=== PATIENT | female | born 1955 | race Caucasian/White ===

== ENCOUNTER 2024-02-16 13:10 | Emergency (ER) | payer MEDICARE, MEDICAID, SELFPAY ==
--- NOTE | 2024-02-16 13:30 | EDNOTE_ITS ---
ED Skin Abcess FB-RME/HPI General Chief complaint: Skin/Abscess/Foreign Body Stated complaint: I HAVE MYIASIS - LESIONS TO ARMS, LEGS, AND NOSE Time Seen by Provider: 02/16/24 13:32 Arrival date/time: 02/16/24 13:10 68-year-old female with history of methamphetamine abuse presents to the emergency department today reports she has multiple sores Limitations: no limitations Related Data Home Medications ?Medication ?Instructions ?Recorded ?Confirmed atenolol 100 mg tablet (Tenormin) 100 mg PO QDAY HBP ##0 02/15/14 03/13/21 sertraline 100 mg tablet (Zoloft) 100 mg PO BID Depression #0 tabs 07/20/15 03/13/21 Previous Rx's ?Medication ?Instructions ?Recorded sulfamethoxazole 800 1 tab PO BID #20 tabs 03/13/21 mg-trimethoprim 160 mg tablet (Bactrim DS) lidocaine 5 % topical patch 2 patch topical QDAY PRN pain #30 10/19/23 (Lidoderm) ea oxycodone-acetaminophen 5 mg-325 2 tab PO TID PRN pain #20 tabs 10/19/23 mg tablet (Percocet) clindamycin HCl 300 mg capsule 300 mg PO TID 7 days #21 caps 02/16/24 mupirocin 2 % topical ointment 1 applic topical TID 10 days #22 02/16/24 grams Allergies Allergy/AdvReac Type Severity Reaction Status Date / Time Iodinated Contrast Media Allergy Severe Agitated Verified 11/10/23 13:11 [Iodinated Contrast- Oral and IV Dye] ketorolac Allergy Intermediate ITCHING Verified 11/10/23 13:11 tramadol AdvReac Severe SEIZURES Verified 11/10/23 13:11 PER PT codeine AdvReac Intermediate VOMITING Verified 11/10/23 13:11 hydrocodone AdvReac Intermediate VOMITING Verified 11/10/23 13:11 Review of Systems Review of Systems Systems Reviewed: All systems reviewed, normal except as documented Constitutional Constitutional: Reports system reviewed and no additional complaints, except as documented, Denies fever(s) and Denies headache(s) Eyes Eyes: Reports system reviewed and no additional complaints, except as documented and Denies blurry vision ENT Ears, Nose, Mouth, and Throat: Reports system reviewed and no additional complaints, except as documented, Denies headache(s), Denies nasal congestion and Denies nasal discharge Cardiovascular Cardiovascular: Reports system reviewed and no additional complaints, except as documented, Denies chest pain and Denies dyspnea Respiratory Respiratory: Reports system reviewed and no additional complaints, except as documented, Denies chest congestion, Denies cough and Denies dyspnea Gastrointestinal Gastrointestinal: Reports system reviewed and no additional complaints, except as documented and Denies abdominal pain Integumentary/Breasts Skin/Breast: Reports system reviewed and no additional complaints, except as documented, Denies rash and Reports wounds (Skin sores) Neurologic Neurologic: Reports system reviewed and no additional complaints, except as documented, Reports as per HPI and Denies headache(s) Past Medical History Past Medical History CARDIAC: Positive Hypertension; Negative Congestive Heart Failure RESPIRATORY: Negative Chronic Obstructive Pulmonary Disease (COPD) GASTROINTESTINAL: Positive Hepatitis GENITOURINARY: Positive Genitourinary Disorders and Renal Disease ENDOCRINE: Negative Diabetes Mellitus Type 1 or Diabetes Mellitus Type 2 PSYCHO/SOCIAL: Positive Depression and Anxiety OTHER HISTORY: Positive Autoimmune Disease Social History SMOKING STATUS: Never smoker ED Exam General Limitations: Present no limitations General appearance: Present alert and in no apparent distress Head Head exam: Present atraumatic Eye Eye exam: Present normal appearance, PERRL and EOMI ENT ENT exam: Present normal exam, normal oropharynx and mucous membranes moist Neck Neck exam: Present normal inspection, full ROM and trachea midline Chest Chest inspection: Present normal inspection and symmetric chest wall rise Respiratory Respiratory exam: Present normal lung sounds bilaterally Cardiovascular Cardiovascular exam: Present regular rate, normal rhythm and normal heart sounds Abdominal Exam Abdominal exam: Present soft and normal bowel sounds Extremities Exam Extremities exam: Present normal inspection, full ROM and normal capillary refill; Absent tenderness, pedal edema, joint swelling or calf tenderness Back Exam Back exam: Present normal inspection and full ROM Neurological Exam Neurological exam: Present alert, oriented X3 and CN II-XII intact Psychiatric Psychiatric exam: Present normal affect and normal mood Skin Skin exam: Present warm, dry and other (Multiple skin sores) Course Quality Measures none Vital Signs Vital signs: Vital Signs Temperature 98 F 02/16/24 13:31 Pulse Rate 77 02/16/24 13:31 Respiratory Rate 18 02/16/24 13:31 Blood Pressure 168/69 H 02/16/24 13:31 Pulse Oximetry (%) 98 02/16/24 13:31 Oxygen Delivery Method Room Air 02/16/24 13:31 O2 saturation 98% room air within normal limits Skin / Abscess / Foreign Body MDM Narrative MDM Narrative:: 68-year-old female with history of methamphetamine abuse presents to the emergency department today reports she has multiple sores On exam patient appears well patient does not appear ill or toxic Patient has multiple sores on her body in different stages of healing and multiple completely healed sores with scarring Symptoms consistent with methamphetamine abuse and picking at her skin Patient discharged with antibiotics to prevent secondary infection At this time no evidence of abscess or cellulitis Patient discharged home in no distress to follow-up with primary care doctor in the next 24 to 48 hours and for any worsening symptoms to return to the ER immediately Patient data External records reviewed:: [facility] previous records Clinical information provided by:: patient Social determinants that could affect healthcare access:: substance use Patient has the following chronic illnesses:: See history How is presenting disease/condition affected by chronic disease/condition?: caused by Evaluation data The following diagnostics were reviewed and interpreted by me:: other (specify) (N/A) Lab and/or radiology exams considered but not ordered:: Consider not ordered Interpretation Summary: N/A Medications / Prescriptions Medications or Prescriptions considered but not ordered:: Given Medication administrations:: Given Consultations Consultation(s) initiated? (list below): No Diagnosis Skin/Abscess Differential Diagnosis: abscess of skin or subcutaneous tissue, cellulitis and other (Skin sores) Most likely diagnosis given after review of the tests above:: Skin sores Admission Indicated Admission indicated?: not indicated Admission Request Was there a request for admission?: No Disposition Plan Disposition Plan: Discharge Discharge Attestation Discharge Attestation: The patient and all family members were given an opportunity to ask questions and understood the discharge instructions. Discharge instructions specifically effects, indications for sooner follow up or return to the emergency department, and the expected course of current diagnosis. Patient condition: Stable Discharge Plan Plan Patient Disposition: HOME (Self Care) Disposition Comment: stable Prescriptions/Referrals Prescriptions/Med Rec: New clindamycin HCl 300 mg capsule 300 mg PO TID 7 Days Qty: 21 0RF mupirocin 2 % ointment 1 applic topical TID 10 Days Qty: 22 0RF No Action atenolol [Tenormin] 100 MG tablet 100 mg PO QDAY Qty: 0 sertraline [Zoloft] 100 MG tablet 100 mg PO BID Qty: 0 sulfamethoxazole-trimethoprim [Bactrim DS] 800-160 mg tablet 1 tab PO BID Qty: 20 0RF oxycodone-acetaminophen [Percocet] 5-325 mg tablet 2 tab PO TID MDD 6 PRN (Reason: pain) Qty: 20 0RF lidocaine [Lidoderm] 5 % adhesive patch,medicated 2 patch topical QDAY PRN (Reason: pain) Qty: 30 0RF Rx Instructions: leave on most painful area for up to 12 hrs Problem List Clinical Impression: Skin sore Patient/Caregiver Discharge Instructions Additional Instructions: Please follow up with your primary care doctor in the next 24-48hrs for any worsening symptoms return here immediately Print Language: Mongolian Stand Alone Forms: Harini Award Info., Patient Portal Info Letter [employer] Supervising Physician NENA/KAROLINE Supervising Physician: dr hart
[2024-02-16 13:31] VITALS: BP 168/69; PULSE 77; RESP 18; TEMP 36.6; O2SAT 98; BMI 22.7
--- NOTE | 2024-02-16 13:48 | PC.CC ---
ASW was consulted regarding ride for patient. ASW set up transportation via [employer] for the patient.
== END 2024-02-16 13:37 | disposition home or self-care (01) ==
PROVIDERS: Emergency Provider Emergency Medicine; PCP Nurse Practitioner
DX: L98.9 Disorder of the skin and subcutaneous tissue, unspecified (principal)
CPT/HCPCS: 99281

== ENCOUNTER 2024-03-23 22:54 | Emergency (ER) | payer MEDICARE, MEDICAID, SELFPAY ==
[2024-03-23 23:30] VITALS: BP 177/84; PULSE 79; RESP 20; TEMP 36.5; O2SAT 97
--- NOTE | 2024-03-24 00:12 | PC.NURSE ---
Pt was placed in RME 2 for vitals and to speak to a provider. After speaking to provider and getting vitals taken pt was no longer in RME 2 and could not be found. Pt is believed to have eloped.
--- NOTE | 2024-03-24 00:14 | PC.NURSE ---
Pt was discharged by provider.
[2024-03-24 00:17] VITALS: RESP 18
--- NOTE | 2024-03-24 05:32 | PD.EDSKIN ---
ED Skin Abcess FB-RME/HPI General Chief complaint: Skin/Abscess/Foreign Body Stated complaint: SKIN PROBLEM Time Seen by Provider: 03/24/24 00:13 Arrival date/time: 03/23/24 22:54 68F with history of meth use presents to ED with chronic wounds on skin thinking there's worms in her skin. Patient was recently this here and given ABX w/o relief. Patient wants ivermectin. Limitations: no limitations Related Data Home Medications ?Medication ?Instructions ?Recorded ?Confirmed atenolol 100 mg tablet (Tenormin) 100 mg PO QDAY HBP ##0 02/15/14 03/13/21 sertraline 100 mg tablet (Zoloft) 100 mg PO BID Depression #0 tabs 07/20/15 03/13/21 Previous Rx's ?Medication ?Instructions ?Recorded sulfamethoxazole 800 1 tab PO BID #20 tabs 03/13/21 mg-trimethoprim 160 mg tablet (Bactrim DS) lidocaine 5 % topical patch 2 patch topical QDAY PRN pain #30 10/19/23 (Lidoderm) ea oxycodone-acetaminophen 5 mg-325 2 tab PO TID PRN pain #20 tabs 10/19/23 mg tablet (Percocet) Allergies Allergy/AdvReac Type Severity Reaction Status Date / Time Iodinated Contrast Media Allergy Severe Agitated Verified 03/23/24 22:58 [Iodinated Contrast- Oral and IV Dye] ketorolac Allergy Intermediate ITCHING Verified 03/23/24 22:58 tramadol AdvReac Severe SEIZURES Verified 03/23/24 22:58 PER PT codeine AdvReac Intermediate VOMITING Verified 03/23/24 22:58 hydrocodone AdvReac Intermediate VOMITING Verified 03/23/24 22:58 Review of Systems Review of Systems Systems Reviewed: All systems reviewed, normal except as documented Constitutional Constitutional: Reports system reviewed and no additional complaints, except as documented, Denies fever(s) and Denies headache(s) ENT Ears, Nose, Mouth, and Throat: Denies disequilibrium and Denies headache(s) Cardiovascular Cardiovascular: Reports system reviewed and no additional complaints, except as documented, Denies chest pain and Denies dyspnea Respiratory Respiratory: Reports system reviewed and no additional complaints, except as documented, Denies cough and Denies dyspnea Gastrointestinal Gastrointestinal: Reports system reviewed and no additional complaints, except as documented, Denies abdominal pain, Denies nausea and Denies vomiting Integumentary/Breasts Skin/Breast: Reports as per HPI, Reports lesions and Reports wounds Neurologic Neurologic: Reports system reviewed and no additional complaints, except as documented, Denies confusion, Denies disequilibrium and Denies headache(s) Psychiatric Psychiatric: Denies confusion Past Medical History Past Medical History CARDIAC: Positive Hypertension; Negative Congestive Heart Failure RESPIRATORY: Negative Chronic Obstructive Pulmonary Disease (COPD) GASTROINTESTINAL: Positive Hepatitis GENITOURINARY: Positive Genitourinary Disorders and Renal Disease ENDOCRINE: Negative Diabetes Mellitus Type 1 or Diabetes Mellitus Type 2 PSYCHO/SOCIAL: Positive Depression and Anxiety OTHER HISTORY: Positive Autoimmune Disease Social History SMOKING STATUS: Current every day smoker ED Exam General Limitations: Present no limitations General appearance: Present alert and in no apparent distress Head Head exam: Present atraumatic Eye Eye exam: Present normal appearance, PERRL and EOMI ENT ENT exam: Present normal exam, normal oropharynx and mucous membranes moist Neck Neck exam: Present normal inspection, full ROM and trachea midline Chest Chest inspection: Present normal inspection and symmetric chest wall rise Respiratory Respiratory exam: Present normal lung sounds bilaterally Cardiovascular Cardiovascular exam: Present regular rate, normal rhythm and normal heart sounds Abdominal Exam Abdominal exam: Present soft and normal bowel sounds Extremities Exam Extremities exam: Present full ROM Expanded Upper Extremity Exam Arm exam: Present full ROM and other (R lesions) Back Exam Back exam: Present normal inspection and full ROM Neurological Exam Neurological exam: Present alert, oriented X3 and CN II-XII intact Psychiatric Psychiatric exam: Present normal affect and normal mood Skin Skin exam: Present warm, dry, intact and normal color Course Quality Measures none Vital Signs Vital signs: Vital Signs Temperature 97.7 F 03/23/24 23:30 Pulse Rate 79 03/23/24 23:30 Respiratory Rate 20 03/23/24 23:30 Blood Pressure 177/84 H 03/23/24 23:30 Pulse Oximetry (%) 97 03/23/24 23:30 Oxygen Delivery Method Room Air 03/23/24 23:30 O2 at 97% on RA and WNLs Skin / Abscess / Foreign Body MDM Narrative MDM Narrative:: 68F with history of meth use presents to ED with chronic wounds on skin thinking there's worms in her skin. Patient was recently this here and given ABX w/o relief. Patient wants ivermectin. Physical exam reveals several open wounds on R arm with no obvious redness or swelling around them. Patient is afebrile, calm, and alert. 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 Patient data External records reviewed:: [facility] previous records Clinical information provided by:: patient Social determinants that could affect healthcare access:: substance use Patient has the following chronic illnesses:: drug use How is presenting disease/condition affected by chronic disease/condition?: exacerbated by Evaluation data The following diagnostics were reviewed and interpreted by me:: other (specify) (none) Lab and/or radiology exams considered but not ordered:: not ordered Interpretation Summary: n/a Medications / Prescriptions Medications or Prescriptions considered but not ordered:: not ordered Medication administrations:: n/a Consultations Consultation(s) initiated? (list below): No Diagnosis Skin/Abscess Differential Diagnosis: abscess of skin or subcutaneous tissue, viral exanthem, dermatophytosis, urticaria, herpes zoster, allergic reaction to drug, cellulitis, eczema, insect bites, impetigo, contact dermatitis and other (chronic wound and delusions of parasitosis) Most likely diagnosis given after review of the tests above:: chronic wound and delusions of parasitosis Admission Indicated Admission indicated?: not indicated Admission Request Was there a request for admission?: No Disposition Plan Disposition Plan: Discharge Discharge Attestation Discharge Attestation: The patient and all family members were given an opportunity to ask questions and understood the discharge instructions. Discharge instructions specifically effects, indications for sooner follow up or return to the emergency department, and the expected course of current diagnosis. Patient condition: Stable Discharge Plan Plan Patient Disposition: HOME (Self Care) Disposition Comment: Stable Prescriptions/Referrals Prescriptions/Med Rec: No Action atenolol [Tenormin] 100 MG tablet 100 mg PO QDAY Qty: 0 sertraline [Zoloft] 100 MG tablet 100 mg PO BID Qty: 0 sulfamethoxazole-trimethoprim [Bactrim DS] 800-160 mg tablet 1 tab PO BID Qty: 20 0RF oxycodone-acetaminophen [Percocet] 5-325 mg tablet 2 tab PO TID MDD 6 PRN (Reason: pain) Qty: 20 0RF lidocaine [Lidoderm] 5 % adhesive patch,medicated 2 patch topical QDAY PRN (Reason: pain) Qty: 30 0RF Rx Instructions: leave on most painful area for up to 12 hrs Referrals: Jesusita Alvarez FNP [Primary Care Provider] - In 1 week Problem List Clinical Impression: Delusions of parasitosis, Chronic wound Patient/Caregiver Discharge Instructions Additional Instructions: Please follow-up with PCP within 24-48 hours and return immediately if symptoms worsen. Follow-up with dermatology. Can also call [facility]: . Print Language: Persian Stand Alone Forms: Patient Portal Info Letter NENA/KAROLINE Supervising Physician TUNG Supervising Physician: Dr. Goodson
== END 2024-03-24 00:31 | disposition home or self-care (01) ==
PROVIDERS: Emergency Provider Emergency Medicine; PCP Nurse Practitioner
DX: F22 Delusional disorders (principal); S41.101D Unspecified open wound of right upper arm, subsequent encounter; X58.XXXD Exposure to other specified factors, subsequent encounter
CPT/HCPCS: 99281

== ENCOUNTER 2024-05-08 15:08 | Emergency (ER) | payer MEDICARE, MEDICAID, SELFPAY ==
[2024-05-08 15:08] VITALS: BMI 23.5
[2024-05-08 15:17] VITALS: BP 175/77; PULSE 68; RESP 20; TEMP 36.7; O2SAT 100
--- NOTE | 2024-05-08 15:17 | PD.EDSKIN ---
ED Skin Abcess FB-RME/HPI General Chief complaint: Skin/Abscess/Foreign Body Stated complaint: SORES TO WHOLE BODY x 7 DAYS Time Seen by Provider: 05/08/24 15:11 Arrival date/time: 05/08/24 15:08 68-year-old female history of methamphetamine abuse presents to the emergency department today complains of skin sores to her body patient reports symptoms ongoing for more than a week patient's had multiple visits for the same Limitations: no limitations Related Data Home Medications ?Medication ?Instructions ?Recorded ?Confirmed atenolol 100 mg tablet (Tenormin) 100 mg PO QDAY HBP ##0 02/15/14 03/13/21 sertraline 100 mg tablet (Zoloft) 100 mg PO BID Depression #0 tabs 07/20/15 03/13/21 Previous Rx's ?Medication ?Instructions ?Recorded sulfamethoxazole 800 1 tab PO BID #20 tabs 03/13/21 mg-trimethoprim 160 mg tablet (Bactrim DS) lidocaine 5 % topical patch 2 patch topical QDAY PRN pain #30 10/19/23 (Lidoderm) ea oxycodone-acetaminophen 5 mg-325 2 tab PO TID PRN pain #20 tabs 24 mg tablet (Percocet) mupirocin 2 % topical ointment 1 applic topical TID 10 days #22 05/08/24 grams Allergies Allergy/AdvReac Type Severity Reaction Status Date / Time Iodinated Contrast Media Allergy Severe Agitated Verified 05/08/24 15:10 (Iodinated Contrast- Oral and IV Dye) ketorolac Allergy Severe ITCHING Verified 05/08/24 15:10 codeine AdvReac Severe VOMITING Verified 05/08/24 15:10 hydrocodone AdvReac Severe VOMITING Verified 05/08/24 15:10 tramadol AdvReac Severe SEIZURES Verified 05/08/24 15:10 PER PT Review of Systems Review of Systems Systems Reviewed: All systems reviewed, normal except as documented Constitutional Constitutional: Reports system reviewed and no additional complaints, except as documented, Denies fever(s) and Denies headache(s) Eyes Eyes: Reports system reviewed and no additional complaints, except as documented and Denies blurry vision ENT Ears, Nose, Mouth, and Throat: Reports system reviewed and no additional complaints, except as documented, Denies headache(s), Denies nasal congestion and Denies nasal discharge Cardiovascular Cardiovascular: Reports system reviewed and no additional complaints, except as documented, Denies chest pain and Denies dyspnea Respiratory Respiratory: Reports system reviewed and no additional complaints, except as documented, Denies chest congestion, Denies cough and Denies dyspnea Gastrointestinal Gastrointestinal: Reports system reviewed and no additional complaints, except as documented and Denies abdominal pain Integumentary/Breasts Skin/Breast: Reports system reviewed and no additional complaints, except as documented, Reports lesions and Denies rash Neurologic Neurologic: Reports system reviewed and no additional complaints, except as documented, Reports as per HPI and Denies headache(s) Past Medical History Past Medical History CARDIAC: Positive Hypertension; Negative Congestive Heart Failure RESPIRATORY: Negative Chronic Obstructive Pulmonary Disease (COPD) GASTROINTESTINAL: Positive Hepatitis GENITOURINARY: Positive Genitourinary Disorders and Renal Disease ENDOCRINE: Negative Diabetes Mellitus Type 1 or Diabetes Mellitus Type 2 PSYCHO/SOCIAL: Positive Depression and Anxiety OTHER HISTORY: Positive Autoimmune Disease Social History SMOKING STATUS: Heavy (> 1 pack/day) ED Exam General Limitations: Present no limitations General appearance: Present alert and in no apparent distress Head Head exam: Present atraumatic, normocephalic and normal inspection Eye Eye exam: Present normal appearance, PERRL and EOMI; Absent conjunctival injection ENT ENT exam: Present normal exam, normal oropharynx and mucous membranes moist Neck Neck exam: Present normal inspection, full ROM and trachea midline Chest Chest inspection: Present normal inspection and symmetric chest wall rise Respiratory Respiratory exam: Present normal lung sounds bilaterally Cardiovascular Cardiovascular exam: Present regular rate, normal rhythm and normal heart sounds Abdominal Exam Abdominal exam: Present soft and normal bowel sounds; Absent distention, tenderness, guarding, rebound or rigidity Extremities Exam Extremities exam: Present normal inspection and full ROM Back Exam Back exam: Present normal inspection and full ROM Neurological Exam Neurological exam: Present alert, oriented X3, CN II-XII intact, normal gait and reflexes normal; Absent motor sensory deficit Psychiatric Psychiatric exam: Present normal affect and normal mood Skin Skin exam: Present warm, dry and rash (Skin sores) Course Quality Measures none Vital Signs Vital signs: Vital Signs Temperature 98.0 F 05/08/24 15:17 Pulse Rate 68 05/08/24 15:17 Respiratory Rate 20 05/08/24 15:17 Blood Pressure 175/77 H 05/08/24 15:17 Pulse Oximetry (%) 100 05/08/24 15:17 Oxygen Delivery Method Room Air 05/08/24 15:17 O2 saturation 100% on room air within normal limits Skin / Abscess / Foreign Body MDM Narrative MDM Narrative:: 68-year-old female history of methamphetamine abuse presents to the emergency department today complains of skin sores to her body patient reports symptoms ongoing for more than a week patient's had multiple visits for the same On exam patient well-appearing patient does not appear ill or toxic and in no acute distress On exam patient has multiple skin sores given stages of healing I suspect is from patient picking her skin while using methamphetamine Patient discharged home in no distress to follow-up with primary care doctor in the next 24 to 48 hours and for any worsening symptoms to return to the ER immediately Patient data External records reviewed:: [facility] previous records Clinical information provided by:: patient Social determinants that could affect healthcare access:: substance use Patient has the following chronic illnesses:: Substance abuse How is presenting disease/condition affected by chronic disease/condition?: caused by Evaluation data The following diagnostics were reviewed and interpreted by me:: other (specify) (N/A) Lab and/or radiology exams considered but not ordered:: Consider not ordered Interpretation Summary: N/A Medications / Prescriptions Medications or Prescriptions considered but not ordered:: Given Medication administrations:: Given Consultations Consultation(s) initiated? (list below): No Diagnosis Skin/Abscess Differential Diagnosis: abscess of skin or subcutaneous tissue, cellulitis and contact dermatitis Most likely diagnosis given after review of the tests above:: Skin sores Admission Indicated Admission indicated?: not indicated Admission Request Was there a request for admission?: No Disposition Plan Disposition Plan: Discharge Discharge Attestation Discharge Attestation: The patient and all family members were given an opportunity to ask questions and understood the discharge instructions. Discharge instructions specifically effects, indications for sooner follow up or return to the emergency department, and the expected course of current diagnosis. Patient condition: Stable Discharge Plan Plan Patient Disposition: HOME (Self Care) Disposition Comment: Stable Prescriptions/Referrals Prescriptions/Med Rec: New mupirocin 2 % ointment 1 applic topical TID 10 Days Qty: 22 0RF No Action atenolol [Tenormin] 100 MG tablet 100 mg PO QDAY Qty: 0 sertraline [Zoloft] 100 MG tablet 100 mg PO BID Qty: 0 sulfamethoxazole-trimethoprim [Bactrim DS] 800-160 mg tablet 1 tab PO BID Qty: 20 0RF oxycodone-acetaminophen [Percocet] 5-325 mg tablet 2 tab PO TID MDD 6 PRN (Reason: pain) Qty: 20 0RF lidocaine [Lidoderm] 5 % adhesive patch,medicated 2 patch topical QDAY PRN (Reason: pain) Qty: 30 0RF Rx Instructions: leave on most painful area for up to 12 hrs Problem List Clinical Impression: Skin sore Patient/Caregiver Discharge Instructions Additional Instructions: Please follow up with your primary care doctor in the next 24-48hrs for any worsening symptoms return here immediately Print Language: Japanese Stand Alone Forms: Harini Award Info., Patient Portal Info Letter PA/MOLD REPAIR TECHNICIAN Supervising Physician PA/MOLD REPAIR TECHNICIAN Supervising Physician: Dr Light
--- NOTE | 2024-05-08 17:02 | PC.CC ---
Sophia NVAARRO was consulted by JOSE ALEJANDRO Monsivais regarding transportation for the patient back home. [facility]
== END 2024-05-08 15:23 | disposition home or self-care (01) ==
LOC: SERX 15:37
PROVIDERS: Emergency Provider Emergency Medicine; PCP Nurse Practitioner
DX: L98.9 Disorder of the skin and subcutaneous tissue, unspecified (principal); F15.10 Other stimulant abuse, uncomplicated
CPT/HCPCS: 99281

== ENCOUNTER 2024-11-08 19:53 | Observation (INO) | payer MEDICARE, MEDICAID, SELFPAY ==
[2024-11-08 19:09] VITALS: BMI 25.8
[2024-11-08] MEDS: NALOXONE INJ 1 MG/ML SYRINGE 2 ML 2 MG IV (19:09)
[2024-11-08 19:12] VITALS: BP 188/86; PULSE 88; RESP 31; O2SAT 100
[2024-11-08] MEDS: KETAMINE 50 MG/ML VIAL 10 ML 40 MG IVP ×2 (19:15→19:20)
--- NOTE | 2024-11-08 19:15 | EDNOTE_ITS ---
Altered Mental Status RME/HPI General Chief Complaint: Altered Mental Status Stated Complaint: STAT RME / HPI RME / HPI narrative: Dr. Joy?s Main ED Evaluation: Unknown female presents to the ED for altered mental status. Patient was seen by me immediately upon arrival at 1900. Patient was brought in after a medical response unit was called overhead. Patient was visiting another patient that's admitted upstairs and was found to be slumped over in the chair. The admitted patient reported the patient was vaping. No falls or trauma reported. No seizure-like activity. No ROSC was lost. Patient was saturating at 75% RA and was transported here for evaluation. Blood sugar on arrival was 117. Full ROS is unobtainable due to the patient's AMS. Related Data Home Medications ?Medication ?Instructions ?Recorded ?Confirmed atenolol 100 mg tablet (Tenormin) 100 mg PO QDAY HBP # #0 02/15/14 03/13/21 sertraline 100 mg tablet (Zoloft) 100 mg PO BID Depres chris #0 tabs 07/20/15 03/13/21 Previous Rx's ?Medication ?Instructions ?Recorded sulfamethoxazole 800 1 tab PO BID #20 tabs mg-trimethoprim 160 mg tablet (Bactrim DS) lidocaine 5 % topical patch 2 patch topical QDAY PRN p ain #30 10/19/23 (Lidoderm) ea oxycodone-acetaminophen 5 mg-325 2 tab PO TID PRN pain #20 tabs 10/19/23 mg tablet (Percocet) Allergies Allergy/AdvReac Type Severity Reaction Status Date / Time Iodinated Contrast Media Allergy Severe Agitated Verified 05/08/24 15:10 (Iodinated Contrast- Oral and IV Dye) ketorolac Allergy Severe ITCHING Verified 05/08/24 15:10 codeine AdvReac Severe VOMITING Verified 05/08/24 15:10 hydrocodone AdvReac Severe VOMITING Verified 05/08/24 15:10 tramadol AdvReac Severe SEIZURES Verified 05/08/24 15:10 PER PT Review of Systems Review of Systems ROS Unobtainable: unobtainable due to mental status ED Exam Narrative Physical exam: Patient's respiratory rate was 6. Lungs show distant breath sounds bilaterally. Skin shows scarred rosales all over the body from what appears to be previous drug abuse. Heart was tachycardic rate with regular rhythm. Neurologic exam showed the patient to be moving all extremities but extremely altered and unresponsive to verbal commands. Head is normocephalic atraumatic. Eyes show pupils to be 3 mm and equal bilaterally. Skin was also cool and dry. Course Quality Measures none Orders Category Date Time Status 24 HR Medical Restraints Q2HR Care 11/08/24 19:28 Active 24 HR Medical Restraints Q2HR Care 11/08/24 19:30 Active EKG (ED ONLY) *Do not use* NOW Care 11/08/24 19:[address] head/brain wo con Stat Exams 11/08/24 19:17 Completed EKG (ED Only) Stat Exams 11/08/24 19:18 Ordered Alcohol, Blood Medical Stat Lab 11/08/24 19:05 Completed CBC Stat Lab 11/08/24 19:05 Completed CMP [Comprehensive Metabolic Panel] Stat Lab 11/08/24 19:05 Completed Drug Screen,Urine Stat Lab 11/08/24 19:05 Completed Troponin I Stat Lab 11/08/24 19:05 Completed Ketamine Inj Med 11/08/24 19:24 Discontinued 40 mg IVP X1 ONE Ketamine Inj Med 11/08/24 19:26 Discontinued 40 mg IVP X1 ONE Ketamine Inj Med 11/08/24 19:04 Discontinued 500 mg .ROUTE .STK-MED ONE Ketamine Inj Med 11/08/24 19:37 Discontinued 500 mg .ROUTE .STK-MED ONE NALOXONE INJ (Syringe) [Narcan Inj (Syringe)] Med 11/08/24 19:01 Discontinued 2 mg .ROUTE .STK-MED ONE NALOXONE INJ (Syringe) [Narcan Inj (Syringe)] Med 11/08/24 19:25 Discontinued 2 mg IV X1 ONE Vital Signs Vital signs: Vital Signs Pulse Rate 88 11/08/24 19:12 Respiratory Rate 31 H 11/08/24 19:12 Blood Pressure 188/86 H 11/08/24 19:12 Pulse Oximetry (%) 100 11/08/24 19:12 Oxygen Delivery Method Oxy Mask 11/08/24 19:12 Oxygen Flow Rate 10 11/08/24 19:12 Altered Mental Status MDM Narrative MDM Narrative:: Scribe Attestation: 11/08/24 - Cesilia Yung am scribing for and in the presence of Dr. Joy. Differential diagnosis: Intracerebral bleed, drug abuse, hypoglycemia, hypertensive encephalopathy, alcohol abuse Patient was breathing at a rate of 6. Her breasts are very shallow. Blood sugar is 117. Patient received Narcan 2 mg IV which woke the patient up and increased the respiratory rate. She then got very combative. She required ketamine 40 mg IV x 2 to help sedate her. This brought down the patient's blood pressure from the 220s to the 170s. Head CT was negative. Urinary tox screen was positive for methamphetamine as well as marijuana and fentanyl. Patient will require admission to the hospital for further treatment and evaluation. Of note the patient's purse was brought down here to the emergency room where there was a crack pipe a syringe and a spoon with blackened discoloration to the undersurface of the spoon. This was drug paraphernalia. Critical care time spent on this patient excluding other billable procedures was 35 minutes. Patient data External records reviewed:: [facility] previous records (Unknown previous visits) Clinical information provided by:: none (nursing staff) Social determinants that could affect healthcare access:: substance use (unknown) Patient has the following chronic illnesses:: unknown How is presenting disease/condition affected by chronic disease/condition?: no chronic disease Evaluation data The following diagnostics were reviewed and interpreted by me:: lab results, radiology exam(s) and EKG tracing(s) Lab and/or radiology exams considered but not ordered:: none Interpretation Summary: [facility] Report Signed Patient: MARGIE MEYER. Record#: [id number] Birthdate: 1955 Age/Sex: 69 / F Location: [facility] Attending Dr: Ordering Physician: Kristofer Joy DO Date of Service: 11/08/24 Procedure(s): CT head/brain wo con Accession Number(s): [id number] cc: Jack Gold MD; NO PRIMARY/FAMILY,PHYSICIAN; Kristofer Joy DO~ Examination: CT brain head without contrast. 2-D sagittal coronal reconstructions Date and time of exam:November 08, 2024 2056 hours INDICATIONS: Loss of consciousness episode this evening CTDI: vol (mGy):45.9. DLP: (mGycm):1013 Technique: Multiple CT axial sections of the brain have been obtained, 5 mm slice thickness. Contrast has not been administered. 2-D sagittal, coronal reconstructions have been obtained Low dose protocols were performed. One or more of the following dose reduction techniques were used; automated exposure control, adjustment of the mA and/or KV according to patient size, use of iterative reconstruction technique. Findings: No significant ventricular enlargement. Intra-axial or extra-axial hemorrhage density is not seen. No mass effect or midline shift Basal cisterns are not remarkable. Fourth ventricle is midline. Cranial vault intact. Impression: Negative for acute hemorrhage, mass effect or midline shift Advise clinical correlation and follow up accordingly Dictated By: Jack Gold MD Signed By: <Electronically signed by Jack Gold MD in OV> 11/08/241 Medications / Prescriptions Medications or Prescriptions considered but not ordered:: none Medication administrations:: Medication Administration History Discontinued Medications Ketamine HCl (Ketamine 50 Mg/Ml Vial 10 Ml) Confirm Administered Dose 500 mg .ROUTE .STK-MED ONE Stop: 11/08/24 19:05 Last Admin: 11/08/24 19:24 Dose: Not Given Documented By: WO Non-Admin Reason: Duplicate Medication on eMAR Ketamine HCl (Ketamine 50 Mg/Ml Vial 10 Ml) 40 mg IVP X1 ONE Stop: 11/08/24 19:25 Last Admin: 11/08/24 19:15 Dose: 40 mg Documented By: WO Ketamine HCl (Ketamine 50 Mg/Ml Vial 10 Ml) 40 mg IVP X1 ONE Stop: 11/08/24 19:27 Last Admin: 11/08/24 19:20 Dose: 40 mg Documented By: WO Ketamine HCl (Ketamine 50 Mg/Ml Vial 10 Ml) Confirm Administered Dose 500 mg .ROUTE .STK-MED ONE Stop: 11/08/24 19:38 Last Admin: 11/08/24 20:33 Dose: Not Given Documented By: WO Non-Admin Reason: Duplicate Medication on eMAR Naloxone HCl (Naloxone Inj 1 Mg/Ml Syringe 2 Ml) Confirm Administered Dose 2 mg .ROUTE .STK-MED ONE Stop: 11/08/24 19:02 Last Admin: 11/08/24 19:24 Dose: Not Given Documented By: WO Non-Admin Reason: Duplicate Medication on eMAR Naloxone HCl (Naloxone Inj 1 Mg/Ml Syringe 2 Ml) 2 mg IV X1 ONE Stop: 11/08/24 19:26 Last Admin: 11/08/24 19:09 Dose: 2 mg Documented By: WO see above Consultations Consultation(s) initiated? (list below): Yes Consultation #1 (Physician, Specialty, Details): Discussed case with the resident physician, attending Dr. Garces from Hospitalist service regarding admission. Discussed patients ED course, exam findings, labs, and radiology results. The Hospitalist agrees to accept the patient for admission. Time: 21:36 Diagnosis Differential diagnosis altered mental status: altered mental status and other (drug use, polysubstance abuse) Most likely diagnosis given after review of the tests above:: see clinical impression below Admission Indicated Admission indicated?: indicated Admission Request Was there a request for admission?: Yes Admission Attestation Admission request attestation: Discussed case with [] from Hospitalist service regarding admission. Discussed patients ED course, exam findings, labs, and radiology results. The Hospitalist [agrees,declines] to accept the patient for admission. Disposition Plan Disposition Plan: Admit Critical Care Time Critical Care Time Critical Care Time: Yes Total Critical Care Time (min.): 35 Attestation: The high probability of sudden, clinically significant deterioration in the patient?s condition required the highest level of my preparedness to intervene urgently. The services I provided to this patient were to treat and/or prevent clinically significant deterioration. Services included the following: chart data review, reviewing nursing notes and/or old charts, documentation time, child development consultant collaboration regarding findings and treatment options, medication orders and management, direct patient care, vital sign assessments and ordering, interpreting and reviewing diagnostic studies and lab tests. Aggregate critical care time includes only time during which I was engaged in work directly related to the patient?s care, as described above, whether at bedside or elsewhere in the Emergency Department. It did not include time spent performing other reported procedures or the services of residents, students, nurses or physician assistants. Discharge Plan Plan Patient Disposition: Admit Acute Care w/in Hospital Prescriptions/Referrals Prescriptions/Med Rec: No Action atenolol [Tenormin] 100 MG tablet 100 mg PO QDAY Qty: 0 sertraline [Zoloft] 100 MG tablet 100 mg PO BID Qty: 0 sulfamethoxazole-trimethoprim [Bactrim DS] 800-160 mg tablet 1 tab PO BID Qty: 20 0RF oxycodone-acetaminophen [Percocet] 5-325 mg tablet 2 tab PO TID MDD 6 PRN (Reason: pain) Qty: 20 0RF lidocaine [Lidoderm] 5 % adhesive patch,medicated 2 patch topical QDAY PRN (Reason: pain) Qty: 30 0RF Rx Instructions: leave on most painful area for up to 12 hrs Referrals: No Primary/Family,Physician [Primary Care Provider] - In 1 week Problem List Clinical Impression: Acute drug intoxication Patient/Caregiver Discharge Instructions Print Language: Fijian Stand Alone Forms: Harini Award Info., Patient Portal Info Letter
[2024-11-08 19:49] LABS: Basophils # (Auto) 0.0 Thou/mm3 (0.0-0.2); Basophils % (Auto) 1 % (0-2.5); Eosinophils # (Auto) 0.2 Thou/mm3 (0.0-0.5); Eosinophils % (Auto) 3 % (0-10); Hematocrit 36.6 % (36.0-46.0); Hemoglobin 11.5 g/dL (12.0-16.0); Immature Granulocytes Auto 0.02 Thou/mm3 (0.00-0.00); Lymphocytes # (Auto) 2.5 Thou/mm3 (1.0-4.8); Lymphocytes % (Auto) 43 % (10-50); Mean Corpuscular HGB Conc 31.4 g/dl (31.0-37.0); Mean Corpuscular Hemoglobin 28.3 pg (25.0-35.0); Mean Corpuscular Volume 90 fL (80-100); Monocytes # (Auto) 0.7 Thou/mm3 (0.0-0.8); Monocytes % (Auto) 12 % (0-12); Neutrophils # (Auto) 2.4 Thou/mm3 (1.8-7.7); Neutrophils % (Auto) 41 % (37-80); Nucleated Red Blood Cell # 0.00 Thou/mm3 (0.00-0.00); Nucleated Red Blood Cell % 0 /100 WBC (0); Platelet Count 244 Thou/mm3 (140-440); RDW Standard Deviation 43.5 fL (36.4-46.3); Red Blood Count 4.06 Miln/mm3 (4.00-5.20); White Blood Count 5.8 Thou/mm3 (3.6-11.0)
[2024-11-08 20:24] LABS: Alanine Aminotransferase 24 U/L (10-49); Albumin, Serum 4.6 gm/dL (3.4-4.8); Albumin/Globulin Ratio 1.2 (1.2-2.2); Alcohol, Blood Medical < 3.0 mg/dL (0-10.0); Alkaline Phosphatase 159 U/L (46-116); Anion Gap 8 (7-16); Aspartate Amino Transferase 37 U/L (0-34); BUN/Creatinine Ratio 18 Ratio (12-20); Bilirubin,Total 0.4 mg/dL (0.3-1.2); Blood Urea Nitrogen 21 mg/dL (9-23); Calcium 10.1 mg/dL (8.3-10.6); Calcium (Corrected) 10.1 mg/dL (8.5-10.1); Carbon Dioxide 27.0 mMol/L (20.0-31.0); Chloride 103 mMol/L (98-107); Creatinine (Component) 1.2 mg/dL (0.6-1.3); Estimated Creatinine Clearance 45.1 mL/min (>60); Globulin 3.8 gm/dL (2.3-3.5); Glucose 111 mg/dL (74-106); Osmolality,Calculated 279 (275-295); Potassium 5.8 mMol/L (3.4-5.1); Sodium 138 mMol/L (136-145); Total Protein 8.4 gm/dL (5.7-8.2); Troponin I < 0.020 ng/mL (0.0-0.045); eGFR 49 See Note
[2024-11-08 21:09] VITALS: BP 178/79; PULSE 64; RESP 19; TEMP 36.9; O2SAT 94
[2024-11-08 21:13] LABS: Amphetamine/Methamp Scrn,U Positive (Negative); Barbiturate Screen,Urine Negative (Negative); Benzodiazepines Screen,Urine Negative (Negative); Benzoylecgonine Screen, Ur Negative (Negative); Fentanyl Screen,Urine Positive (Negative); Opiate Screen,Urine Positive (Negative); THC Screen,Urine Negative (Negative)
[2024-11-08 22:25] VITALS: BP 179/85; PULSE 67; RESP 18; TEMP 36.8; O2SAT 100
--- NOTE | 2024-11-08 22:27 | ESHP_ITS ---
<Statement entered by Ayaan Garces MD - 11/09/24 03:54> I have discussed and was present for the essential components of the history, physical examination, diagnosis, and treatment plan with the resident. I agree with the patient's care as documented by the resident and amended herein by me. Ayaan Garces MD FACP. Documentation for date of: 11/08/24 HPI History of Present Illness Chief complaint: Drug overdose History of present illness: 69 y/o F with PMHx significant for hypertension, polysubstance abuse, hepatitis C presenting with after being found unresponsive and apneic in a patient's room, while visiting. Per report, another visitor was seen running from the room shortly before medical response team was called. Patient found slumped over in chair, unresponsive, apneic but with strong pulse. Per medical response team report, O2 saturations dropped to 75%, patient began spontaneously breathing but only 6 respirations per minute. In ED, a crack pipe was found in patient's purse, along with a spoon with scorched rosales on the bottom. Patient received Narcan, woke up combatively. Patient alert and oriented at time of exam, denied fever, chills, chest pain, nausea, vomiting, but endorsed mild shortness of breath. Patient denies any history of drug use despite positive U tox. ED COURSE: Labs significant for: Potassium 5.8. U tox positive for opioids, fentanyl, methamphetamine. Imaging significant for: Head CT negative. Patient received 2 mg IV Narcan, became combative, received 4 mg IV ketamine x 2. Patient became calm, maintaining O2 saturations on 4 L/min via oxy mask, saturating 100%. PMH: Hypertension, hep C, polysubstance abuse PSH: Hysterectomy SH: Reports 50+ pack year smoking history, denies alcohol use. Patient reports quitting drugs 30 years ago, did not specify which drug she took. Allergies:?Ketorolac, codeine, hydrocodone, tramadol, IV contrast Medications: Atenolol Review of Systems Review of Systems Systems Reviewed: All systems reviewed, normal except as documented Past Medical History Past Medical History Comments PMH COMMENT: PMH: Hypertension, hep C, polysubstance abuse PSH: Hysterectomy SH: Reports 50+ pack year smoking history, denies alcohol use. Patient reports quitting drugs 30 years ago, did not specify which drug she took. Allergies:?Ketorolac, codeine, hydrocodone, tramadol, IV contrast Medications: Atenolol Exam Vital Signs Temp Pulse Resp BP Pulse Ox O2 Del Method O2 Flow Rate 98.3 F 67 18 179/85 H 100 Oxy Mask 5 11/08/24 22:25 11/08/24 22:25 11/08/24 22:25 11/08/24 22:25 11/08/24 22:25 11/08/24 22:11/08/24 22:25 Narrative Exam PE: Gen: Well-developed and well-nourished. HEENT: NCAT, PERRLA, EOMI, anicteric conjunctivae. Dry mucous membranes. CVS: normal S1 and S2. RRR. No M/R/G. Resp: CTA B/L. No rhonchi, rales, crackles. Minimal wheezing left upper lobe. Abd: soft, non-tender, non-distended. MSK: Good ROM in BUE & BLE. No edema or rash. Scarring on bilateral lower extremities consistent with meth use. Neuro: CN II-XII grossly intact. Strength 5/5 in BUE & BLE. Alert and oriented x3. Lethargic but arousable to voice. Psych: appropriate mood and affect. Results: Labs 11/08/24 19:05 11/08/24 19:05 Labs: Short CBC 11/08/24 Range/Units 19:05 WBC 5.8 (3.6-11.0) Thou/mm3 Hgb 11.5 L (12.0-16.0) g/dL Hct 36.6 (36.0-46.0) % Plt Count 244 (140-440) Thou/mm3 BMP 11/08/24 19:05 Sodium 138 Potassium 5.8 H Chloride 103 Carbon Dioxide 27.0 BUN 21 Creatinine 1.2 Glucose 111 H Calcium 10.1 Cardiac Enzymes 11/08/24 Range/Units 19:05 Troponin I < 0.020 (0.0-0.045) ng/mL Liver Function 11/08/24 Range/Units 19:05 Total Bilirubin 0.4 (0.3-1.2) mg/dL AST 37 H (0-34) U/L ALT 24 (10-49) U/L Alkaline Phosphatase 159 H (46-116) U/L Albumin 4.6 (3.4-4.8) gm/dL Quality Measures Quality Measures VTE prophylaxis Advance care planning discussed with:: patient Medications Home Medications and Allergies Home Medications ?Medication ?Instructions ?Recorded ?Confirmed ?Type atenolol 100 mg tablet (Tenormin) 100 mg PO QDAY HBP # #0 02/15/14 03/13/21 History sertraline 100 mg tablet (Zoloft) 100 mg PO BID Depres chris #0 tabs 07/20/15 03/13/21 History Allergies Allergy/AdvReac Type Severity Reaction Status Date / Time Iodinated Contrast Media Allergy Severe Agitated Verified 05/08/24 15:10 (Iodinated Contrast- Oral and IV Dye) ketorolac Allergy Severe ITCHING Verified 05/08/24 15:10 codeine AdvReac Severe VOMITING Verified 05/08/24 15:10 hydrocodone AdvReac Severe VOMITING Verified 05/08/24 15:10 tramadol AdvReac Severe SEIZURES Verified 05/08/24 15:10 PER PT Visit Medications Acetaminophen (Acetaminophen 325 Mg Tablet) 650 mg PO Q6H PRN PRN Reason: Fever >100.4 or pain Stop: 12/08/24 22:17 Albuterol/Ipratropium (Albuterol/Ipratropium (Duoneb) Rt Kasey 3 Ml Nebu) 3 ml INH Q2HR PRN PRN Reason: SHORTNESS OF BREATH OR WHEEZE Stop: 12/08/24 22:22 Atenolol (Atenolol 25 Mg Tablet) 100 mg PO QAM TINO Stop: 12/09/24 08:59 Docusate Sodium (Docusate Sod 100 Mg Capsule) 100 mg PO QDAY PRN; Protocol PRN Reason: CONSTIPATION Stop: 12/08/24 22:17 Heparin Sodium (Porcine) (Heparin Sod Inj 5000 Unit/Ml Vial) 5,000 unit SC Q12HR TINO Stop: 11/23/24 08:59 Lactated Ringer's (Lactated Ringers) 1,000 mls @ 75 mls/hr IV .[id number] TINO Stop: 11/09/24 11:49 Naloxone HCl (Naloxone Inj 1 Mg/Ml Syringe 2 Ml) 2 mg IV Q3M PRN PRN Reason: OPIATE REVERSAL Stop: 12/08/24 22:22 Ondansetron HCl (Ondansetron Inj 2 Mg/Ml Inj 2 Ml) 4 mg IVP Q6H PRN; Protocol PRN Reason: NAUSEA OR VOMITING Stop: 12/08/24 22:17 Sennosides (Senna Tablet) 1 tab PO QDAY PRN; Protocol PRN Reason: constipation Stop: 12/08/24 22:17 Discontinued Medications Ketamine HCl (Ketamine 50 Mg/Ml Vial 10 Ml) 40 mg IVP X1 ONE Stop: 11/08/24 19:25 Last Admin: 11/08/24 19:15 Dose: 40 mg Ketamine HCl (Ketamine 50 Mg/Ml Vial 10 Ml) 40 mg IVP X1 ONE Stop: 11/08/24 19:27 Last Admin: 11/08/24 19:20 Dose: 40 mg Naloxone HCl (Naloxone Inj 1 Mg/Ml Syringe 2 Ml) 2 mg IV X1 ONE Stop: 11/08/24 19:26 Last Admin: 11/08/24 19:09 Dose: 2 mg Assessment & Plan Plan 69 y/o F with PMHx significant for hypertension, polysubstance abuse, hepatitis C presenting with after being found unresponsive and apneic in a patient's room, while visiting, admitted for drug overdose. #Drug overdose, s/p Narcan #Polysubstance abuse Patient was visiting a different patient, when she was found slumped over, unresponsive, apneic, with strong pulse. A crack pipe and a spoon with scorch rosales was found on the patient. Per medical response team report, patient respirations down to 6, O2 saturations down to 75%. U tox positive for opioids, fentanyl, methamphetamine. Patient has been positive for the substances before. Patient received 2 g IV Narcan in the ED, woke up, very combative. Patient received 40 mg ketamine IV x 2 with improvement. Patient remains lethargic but easily arousable, alert and oriented x 4. Saturating 100% on 4 L via oxy mask, 12-14 breaths/min. Head CT was negative. - ABG ordered, will follow-up - IVF: Lactated Ringer's at 75 mL/h x 1 L - Narcan 2 mg IV as needed for relapse of opioid overdose - Telemetry for close monitoring - Supplemental O2 as needed - DuoNebs every 2 hours as needed - Swallow screen pending, patient n.p.o. #Hypertension Patient history as stated. Patient hypertensive in ED, 179/85. - Resume home meds: Atenolol 100 mg p.o. daily DVT prophylaxis: None GI prophylaxis: None Diet: N.p.o. pending swallow screen Lines: Peripheral IV, Felder cath Code status: Full code Plan of care discussed with attending Dr. Mili Rider MD PGY?2
[2024-11-08] MEDS: RINGERS LACTATED 1000 ML 1,000 ML 75 ML IV (22:56)
[2024-11-08 23:00] LABS: Albumin, Serum 4.1 gm/dL (3.4-4.8); Anion Gap 7 (7-16); BUN/Creatinine Ratio 19 Ratio (12-20); Blood Urea Nitrogen 19 mg/dL (9-23); Calcium 9.5 mg/dL (8.3-10.6); Calcium (Corrected) 9.5 mg/dL (8.5-10.1); Carbon Dioxide 27.3 mMol/L (20.0-31.0); Chloride 104 mMol/L (98-107); Creatinine (Component) 1.0 mg/dL (0.6-1.3); Estimated Creatinine Clearance 54.2 mL/min (>60); Glucose 100 mg/dL (74-106); Osmolality,Calculated 277 (275-295); Phosphorous 3.1 mg/dL (2.4-5.1); Potassium 4.6 mMol/L (3.4-5.1); Sodium 138 mMol/L (136-145); eGFR > 60 See Note
[2024-11-08 23:06] VITALS: PULSE 65; RESP 100; RESP 13
[2024-11-08 23:56] VITALS: BP 172/87; PULSE 59; RESP 14; TEMP 36.5; O2SAT 98
[2024-11-09] VITALS (9 sets, daily range): BP systolic 150–179; BP diastolic 69–93; PULSE 56–98; RESP 11–98; TEMP 36.1–36.6; O2SAT 95–100; BMI 23.8
[2024-11-09 00:29] LABS: Base Excess 1 (-3-3); HCO3 26 mEq/L (20-26); Inspired Oxygen, FIO2 21 %; O2 Saturation 99 % (91-98); PCO2 42 mmHg (32.0-48.0); PO2 92 mmHg (83-108); pH, Arterial 7.40 (7.35-7.45)
[2024-11-09 00:30] LABS: Allen Test Performed/OK; Puncture Site Right Radial
[2024-11-09 05:40] LABS: Basophils # (Auto) 0.0 Thou/mm3 (0.0-0.2); Basophils % (Auto) 1 % (0-2.5); Eosinophils # (Auto) 0.1 Thou/mm3 (0.0-0.5); Eosinophils % (Auto) 3 % (0-10); Hematocrit 30.0 % (36.0-46.0); Hemoglobin 10.0 g/dL (12.0-16.0); Immature Granulocytes Auto 0.01 Thou/mm3 (0.00-0.00); Lymphocytes # (Auto) 1.4 Thou/mm3 (1.0-4.8); Lymphocytes % (Auto) 36 % (10-50); Mean Corpuscular HGB Conc 33.3 g/dl (31.0-37.0); Mean Corpuscular Hemoglobin 29.3 pg (25.0-35.0); Mean Corpuscular Volume 88 fL (80-100); Monocytes # (Auto) 0.4 Thou/mm3 (0.0-0.8); Monocytes % (Auto) 10 % (0-12); Neutrophils # (Auto) 2.0 Thou/mm3 (1.8-7.7); Neutrophils % (Auto) 50 % (37-80); Nucleated Red Blood Cell # 0.00 Thou/mm3 (0.00-0.00); Nucleated Red Blood Cell % 0 /100 WBC (0); Platelet Count 180 Thou/mm3 (140-440); RDW Standard Deviation 42.0 fL (36.4-46.3); Red Blood Count 3.41 Miln/mm3 (4.00-5.20); White Blood Count 4.0 Thou/mm3 (3.6-11.0)
[2024-11-09 06:17] LABS: Alanine Aminotransferase 16 U/L (10-49); Albumin, Serum 3.9 gm/dL (3.4-4.8); Albumin/Globulin Ratio 1.3 (1.2-2.2); Alkaline Phosphatase 126 U/L (46-116); Anion Gap 11 (7-16); Aspartate Amino Transferase 28 U/L (0-34); BUN/Creatinine Ratio 17 Ratio (12-20); Bilirubin,Total 0.5 mg/dL (0.3-1.2); Blood Urea Nitrogen 15 mg/dL (9-23); Calcium 9.4 mg/dL (8.3-10.6); Calcium (Corrected) 9.5 mg/dL (8.5-10.1); Carbon Dioxide 23.4 mMol/L (20.0-31.0); Chloride 105 mMol/L (98-107); Creatinine (Component) 0.9 mg/dL (0.6-1.3); Estimated Creatinine Clearance 55.2 mL/min (>60); Globulin 3.0 gm/dL (2.3-3.5); Glucose 86 mg/dL (74-106); Magnesium 1.8 mg/dL (1.6-2.6); Osmolality,Calculated 277 (275-295); Phosphorous 3.5 mg/dL (2.4-5.1); Potassium 4.3 mMol/L (3.4-5.1); Sodium 139 mMol/L (136-145); Total Protein 6.9 gm/dL (5.7-8.2); eGFR > 60 See Note
[2024-11-09] MEDS: HEPARIN SOD INJ 5000 UNIT/ML VIAL SC (09:00)
[2024-11-09] MEDS: Magnesium Sulfate 2 GM Ivpb 2 GM/50 ML BAG IV (09:00)
--- NOTE | 2024-11-09 10:40 | ESDS_ITS ---
<Statement entered by Tracie Spencer MD - 11/24/24 15:04> I reviewed above note and agree with findings and plans. I have also personally examined the patient with medicine team and went over assessment and plan with medical team including internal audit consultant and resident physician. <Statement entered by Annmarie Romo MD - 11/09/24 15:26> Patient was seen and examined by me personally. I have reviewed the below documentation by the team resident and agree with its findings. Discharge plan was discussed with the attending, Dr. Spencer 69-year-old female past medical history of hypertension, polysubstance use, depression/anxiety and personal history of hepatitis C, was found unresponsive and apneic in the patient's room yesterday while visiting, per report another visitor was seen running from the room shortly after medical response being called patient was found slumped in chair unresponsive apneic with a strong pulse. Patient was given Narcan in the emergency department, was combative post Narcan received ketamine for the same and was admitted overnight for observation, patient did not require any additional doses of Narcan overnight. This morning patient was stable, noted to be bradycardic asymptomatic, atenolol was held and patient was started on amlodipine. No other complaints, patient is stable for discharge, will be discharged on Narcan and amlodipine, will continue venlafaxine. Patient is stable for discharge, responded well to hospital treatment. Annmarie Romo MD Internal Medicine, PGY-2 Planned Discharge Date 11/09/24 DS: Providers Provider Date of admission: 11/08/24 22:18 Primary care physician: Physician No Primary/Family Admitting Provider: Ayaan Garces MD Attending Provider on Admission: Ayaan Garces MD Consults: 11/09/24 02:04 Referral [place] Routine Comment: Patient requested to speak to a band tumbler Attending Provider on DC: Dr. Tracie Spencer MD Discharging Provider: Dr. rTacie Spencer MD Anticipated date of discharge: 11/09/24 DS: Diagnosis Problem List Completed Was Problem List Reviewed/Reconciled?: Yes Hospital Course Hospital Course Hospital course: Summary A 69 y/o F with PMHx significant for hypertension, polysubstance abuse, hepatitis C presented to [facility] on 11/08/2024 while visiting a patients room, she was found unresponsive and apneic, admitted for drug overdose. In the ED patient was tachycardic, BP 188/86, and O2 saturating at 75. She was given IV fluid, IV Narcan, and IV ketamine x2, 10L of oxymask. Urine tox was positive for opiate, fentanyl, methamphetamine and head CT was negative. During progression of the hospital stay the patient condition improved significantly, saturating 100% on room air. Furthermore patient was advised extensively about drug cessation and the high risk of cardiac arrest in setting of overdose. Patient will be sent home since she is hemodynamically stable to be discharged home, with the following instructions. Discharge recommendation: - Stop Atenolol, take amlodipine for high blood pressure. - STOP using FENTANYL, METHAMPHEATMINE AND OPIATES, prescribed Narcan as needed. - Continue Venlafaxine. - Follow up with PCP in 1-2 weeks - Return to ED if symptoms worsen If you don't have a PCP, you can make an appointment at the [facility]: [address] [place], [place] [id number] Hospital Diagnoses: #Drug overdose, s/p Narcan #Polysubstance abuse #Primary Hypertension Patient seen and assessed under supervision of attending physician Dr. Spencer and discuss with senior resident Dr. Romo PGY-2 Bonita Cotto MD PGY-1, Internal Medicine l Time spent discussing smoking cessation with patient: more than 10 minutes Time Spent with Patient Time attestation: Total time spent providing and/or coordinating discharge services: Time spent: Greater than 30 minutes Exam Vital Signs Temp Pulse Resp BP Pulse Ox O2 Del Method O2 Flow Rate 97.5 F 58 L 14 170/77 H 100 Room Air 5 11/09/24 08:00 11/09/24 09:00 11/09/24 08:00 11/09/24 09:00 11/09/24 08:00 11/09/24 08:00 11/08/24 22:25 Narrative Exam Gen: Well-developed and well-nourished. HEENT: NCAT, PERRLA, EOMI, anicteric conjunctivae. Dry mucous membranes. CVS: normal S1 and S2. RRR. No M/R/G. Resp: CTA B/L. No rhonchi, rales, crackles. Minimal wheezing left upper lobe (i mproved) Abd: soft, non-tender, non-distended. MSK: Good ROM in BUE & BLE. No edema or rash. Scarring on bilateral upper extremities consistent with meth use. Neuro: CN II-XII grossly intact. Strength 5/5 in BUE & BLE. Alert and oriented x3. Psych: appropriate mood and affect. Discharge Plan Plan Patient Disposition: HOME (Self Care) Patient condition on transfer: Stable Care Plan Goals: Stop Atenolol, take amlodipine for high blood pressure. STOP using FENTANYL, METHAMPHEATMINE AND OPIATES, prescribed Narcan as needed. Continue Venlafaxine. Follow up with PCP in 1-2 weeks Return to ED if symptoms worsen Prescriptions/Referrals Prescriptions/Med Rec: New naloxone [Narcan] 4 mg/actuation spray,non-aerosol 4 mg intranasal Q3M PRN (Reason: opioid overdose) Qty: 2 0RF Rx Instructions: spray 1 dose into ONE nostril; alternate nostrils w each dose until help arrives amlodipine 10 mg tablet 10 mg PO QDAY Qty: 30 0RF Continued venlafaxine 75 mg capsule,extended release 24hr 75 mg PO DAILY Patient Comments: TAKE ONE CAPSULE BY MOUTH EVERY DAY Discontinued atenolol [Tenormin] 100 MG tablet 100 mg PO QDAY Qty: 0 Referrals: No Primary/Family,Physician [Primary Care Provider] - Patient/Caregiver Discharge Instructions Discharge Activity: activity as tolerated Education Materials: Addiction: Getting Help, ED Overdose, Opiate Print Language: Mongolian Stand Alone Forms: [facility] Award Info., Patient Portal Info Letter Discharge Order Discharge Orders: Discharge (Routine); Ordered 11/09/24 Ordered By: Dot Chavez Quality Discharge Quality Measures VTE prophylaxis
[2024-11-09] MEDS: VENLAFAXINE XR 37.5 MG CAPCR 75 MG PO (11:30)
--- NOTE | 2024-11-09 14:20 | PC.SS ---
ASW met with pt at bedside to provide community resources such as the [facility] resource guide and [facility] and Substance Abuse resources. ASW thoroughly explained the [facility] opportunity and its detention unsheltered individuals, as pt mentioned that the residence she resides may not want her to return. Pt reported she has no where else to go and no family. ASW talked about substance abuse programs that can assist with change and pt was receptive. ASW provided psychoeducation on substance use/abuse and pt understood.
--- NOTE | 2024-11-10 08:45 | PC.SS ---
SS and Kaye ISBELL met with pt regarding her d/c plan. SS offered verbal choices for d/c to SNF. Pt refused SNF several times. Kaye ISBELL offered and explained d/c options for homeless senior care. Pt refused homeless senior care at this time. Pt states her friend, Bill Joshi, phone# [phone] who she resides with will provide transportation home. Pt utilizes a walking to stick to ambulate which she has at bedside. Patient's choice is to return home upon dc.
--- NOTE | 2024-11-10 12:41 | PC.SS ---
Late note 11-09-24: SS met with physician resident team who state crises evaluation not required.
== END 2024-11-09 15:28 | disposition home or self-care (01) ==
LOC: SERX 21:44 → S2NX 11-09 04:57 → SERHOLD 11-09 11:47 → S2NX 11-09 11:48
PROVIDERS: Admitting Provider Internal Medicine; Emergency Provider Emergency Medicine; Visit Provider Internal Medicine
DX: T50.901A Poisoning by unspecified drugs, medicaments and biological substances, accidental (unintentional), initial encounter (principal); I10 Essential (primary) hypertension; B19.20 Unspecified viral hepatitis C without hepatic coma; R06.81 Apnea, not elsewhere classified; F19.10 Other psychoactive substance abuse, uncomplicated
CPT/HCPCS: 36415; 36600; 70450; 80053; 80069; 80307; 80320; 82803; 83735; 84100; 84484; 85025; 93005; 96372; 96374; 96376; 99284; G0378; J1644; J2312; J3475; J7120; A9270; G0480

== ENCOUNTER 2025-03-15 21:35 | Emergency (ER) | payer MEDICARE, MEDICAID, SELFPAY ==
[2025-03-15 21:37] VITALS: BMI 22.8
[2025-03-15 21:49] VITALS: BP 188/101; PULSE 101; RESP 18; TEMP 36.6; O2SAT 100
--- NOTE | 2025-03-15 22:44 | EDNOTE_ITS ---
ED Skin Abcess FB-RME/HPI General Chief complaint: Skin/Abscess/Foreign Body Stated complaint: WORMS TO SKINS, ITCHING ALL OVER Time Seen by Provider: 03/15/25 22:08 Arrival date/time: 03/15/25 21:35 68F with history of meth use presents to ED with chronic wounds on skin thinking there's worms in her skin. Limitations: no limitations Related Data Home Medications ?Medication ?Instructions ?Recorded ?Confirmed venlafaxine 75 mg capsule,extended 75 mg PO DAILY 10/2711/09/24 release 24 hr Previous Rx's ?Medication ?Instructions ?Recorded amlodipine 10 mg tablet 10 mg PO QDAY #30 tabs 11/09 naloxone 4 mg/actuation nasal 4 mg intranasal Q3M PRN opioid 11/09/24 spray (Narcan) overdose #2 ea albendazole 200 mg tablet 400 mg (2 x 200 mg) PO QDAY 2 days 03/15/25 #4 tabs Allergies Allergy/AdvReac Type Severity Reaction Status Date / Time Iodinated Contrast Media Allergy Severe Agitated Verified 03/15/25 21:37 (Iodinated Contrast- Oral and IV Dye) ketorolac Allergy Severe ITCHING Verified 03/15/25 21:37 codeine AdvReac Severe VOMITING Verified 03/15/25 21:37 hydrocodone AdvReac Severe VOMITING Verified 03/15/25 21:37 tramadol AdvReac Severe SEIZURES Verified 03/15/25 21:37 PER PT Review of Systems Review of Systems Systems Reviewed: All systems reviewed, normal except as documented Past Medical History Past Medical History NEUROLOGIC: Negative Neurological Disorders, Cerebrovascular Accident, Transient Ischemic Attacks (TIA), Dementia, Alzheimer's Disease, Parkinson's Disease, Brain Tumor, Meningitis, Seizures, Epilepsy, Multiple Sclerosis, Cerebral Palsy, Amyotrophic Lateral Sclerosis (ALS/Coleen Gehrig's), Guillain-Heth Syndrome, Spina Bifida, Paralysis, Peripheral Neuropathy, Sykes's Palsy, Subdural Hematoma, Migraine, Head Trauma, Spinal Cord Injury or Traumatic Brain Injury CARDIAC: Positive Hypertension; Negative Cardiac Disorders, Myocardial Infarction, Cardiac Arrhythmia, Atrial Fibrillation, Angina, Heart Murmur, Coronary Artery Disease, Atherosclerotic Heart Disease, Peripheral Vascular Disease, Hypercholesterolemia, Aneurysm, Congestive Heart Failure, Congenital Heart Disease, Valvular Heart Disease, Rheumatic Fever, Cardiomyopathy, Edema, Pericarditis, Cellulitis, Deep Vein Thrombosis, Hypotension or Varicose Veins RESPIRATORY: Negative Chronic Obstructive Pulmonary Disease (COPD), Asthma, Bronchitis, Emphysema, Pneumonia, Pulmonary Fibrosis, Cystic Fibrosis, Tuberculosis, Pulmonary Embolism, Pulmonary Edema or Sleep Apnea GASTROINTESTINAL: Positive Hepatitis; Negative Gastrointestinal Disorders, Cirrhosis, Pancreatitis, Celiac Disease, Gall Bladder Disease, Gastrointestinal Bleed, Esophageal Varices, Almazan's Esophagus, Colitis, Ulcerative Colitis, Diverticulitis, Diverticulosis, Ulcer, Colorectal Cancer, Irritable Bowel, Crohn's Disease, Obstructive Bowel, Hiatal Hernia, Hemorrhoids, Gastroesophageal Reflux Disease or Obesity GENITOURINARY: Positive Genitourinary Disorders and Renal Disease; Negative Kidney Stones, Polycystic Kidney Disease, Neurogenic Bladder, Inguinal Hernia or Dialysis REPRODUCTIVE: Negative Breast Cancer, Endometriosis, Genital Herpes, Gonorrhea, Pelvic Inflammatory Disease, Previous Pregnancies, Syphilis or Uterine Prolapse MUSCULOSKELETAL: Negative Musculoskeletal Disorders, Muscular Dystrophy, Myasthenia Gravis, Marfan's Syndrome, Bone Cancer, Arthritis, Rheumatoid Arthritis, Osteoporosis, Degenerative Disk Disease, Gout, Scoliosis, Carpal Tunnel Syndrome, Fibromyalgia, Fractures, Degenerative Joint Disease, Osteomyelitis or Poliovirus ENT: Negative Cataracts, Glaucoma, Blind, Retinal Detachment, Macular Degeneration, Ear Infection, Deafness, Head Trauma or Eye Prosthesis ENDOCRINE: Negative Endocrine Disorders, Diabetes Mellitus Type 1, Diabetes Mellitus Type 2, Hypoglycemia, Muse's Syndrome, Salinas's Disease, Hyperthyroidism, Hypothyroidism, Parathyroid Disease, Pituitary Disease, Systemic Lupus Erythematosus, Syndrome of Inappropriate Antidiuretic Hormone (SI ADH), Adrenal Disease or Graves' Disease HEMATOLOGIC: Negative Blood Disorders, Anemia, Leukemia, Hemophilia, Thalassemia, Sickle Cell Disease or Clotting Problems PSYCHO/SOCIAL: Positive Depression and Anxiety; Negative Psychiatric Problems, Schizophrenia, Recreational Drug Use, Bipolar Disorder, Behavior Problems, Self-Mutilation, Attention Deficit Disorder, Attention Deficit Hyperactivity Disorder, Depression, Post Traumatic Stress Disorder or Eating Disorder OTHER HISTORY: Negative Hospitalization, Autoimmune Disease, Down Syndrome, Autism, Developmental Delay, Shingles, Falls, Blood Transfusions, Blood Transfusion Reaction, Anesthesia Reactions, Organ Transplant, Chemotherapy, Radiation Therapy, Hyperbaric Therapy, MRSA, VRSA, Vancomycin-Resistant Enterococci, Human Immunodeficiency Virus (HIV), Chicken Pox, Measles, Mumps, Rubella ([place]ic Measles), Pertussis, Clostridium Difficile, Cancer, Breast Cancer, Cervical Cancer, Colorectal Cancer, Lung Cancer or Ovarian Cancer Family History FAMILY HISTORY: Negative Family Psychiatric Problems, Family Respiratory Disorders, Family Cardiac Disorders, Family Gastrointestinal Problems, Family Cancer, Family Surgery or Family Anesthesia Reaction Surgical History SURGICAL: Negative Cardiac Surgery, Open Heart Surgery, Coronary Artery Bypass Graft, Valve Replacement, Vascular Surgery, Coronary Stent, Cardiac Catheterization, Pacemaker, Angiogram, Auto Implanted Cardiovert Defib, Carotid Endarterectomy, Endocrine Surgery, Thyroidectomy, Ear Surgery, Tympanostomy Tube, Eye Surgery, Nose Surgery, Oral Surgery, Tonsillectomy, Adenoidectomy, Cochlear Implant, Corneal Transplant, Throat Surgery, Abdominal Surgery, Tracheostomy, Gastric Bypass Surgery, Gastrostomy, Bowel Surgery, Nephrectomy, Joint Replacement, Amputation, Open Reduction Internal Fixation, Arthroscopy, Neurologic Surgery, Brain Shunt, Lumpectomy, Hysterectomy, Tubal Ligation, Section or Organ Transplant Social History SMOKING STATUS: Former smoker ED Exam General Limitations: Present no limitations General appearance: Present alert and in no apparent distress Head Head exam: Present atraumatic Neck Neck exam: Present normal inspection, full ROM and trachea midline Chest Chest inspection: Present normal inspection and symmetric chest wall rise Neurological Exam Neurological exam: Present alert and oriented X3 Psychiatric Psychiatric exam: Present normal affect and normal mood Skin Skin exam: Present warm, dry, intact, normal color and other (open wounds/scratches) Course Quality Measures none Vital Signs Vital signs: Vital Signs Temperature 97.9 F 03/15/25 21:49 Pulse Rate 101 H 03/15/25 21:49 Respiratory Rate 18 03/15/25 21:49 Blood Pressure 188/101 H 03/15/25 21:49 Pulse Oximetry (%) 100 03/15/25 21:49 Oxygen Delivery Method Room Air 03/15/25 21:49 O2 at 100% on RA and WNLs Skin / Abscess / Foreign Body MDM Narrative MDM Narrative:: 68F with history of meth use presents to ED with chronic wounds on skin thinking there's worms in her skin. Physical exam reveals several open wounds/scratches on skin with no obvious redness or swelling around them. Patient is afebrile, calm, and alert. 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, but given low risk of albendazole, will give short course Patient data External records reviewed:: [facility] previous records Clinical information provided by:: patient Social determinants that could affect healthcare access:: substance use Patient has the following chronic illnesses:: drug use How is presenting disease/condition affected by chronic disease/condition?: exacerbated by Evaluation data The following diagnostics were reviewed and interpreted by me:: other (specify) (none) Lab and/or radiology exams considered but not ordered:: not ordered Interpretation Summary: n/a Medications / Prescriptions Medications or Prescriptions considered but not ordered:: not ordered Medication administrations:: n/a Consultations Consultation(s) initiated? (list below): No Diagnosis Skin/Abscess Differential Diagnosis: abscess of skin or subcutaneous tissue, viral exanthem, dermatophytosis, urticaria, herpes zoster, allergic reaction to drug, cellulitis, eczema, insect bites, impetigo, contact dermatitis and other (infection) Most likely diagnosis given after review of the tests above:: infection Admission Indicated Admission indicated?: not indicated Admission Request Was there a request for admission?: No Disposition Plan Disposition Plan: Discharge Discharge Attestation Discharge Attestation: The patient and all family members were given an opportunity to ask questions and understood the discharge instructions. Discharge instructions specifically effects, indications for sooner follow up or return to the emergency department, and the expected course of current diagnosis. Patient condition: Stable Discharge Plan Plan Patient Disposition: HOME (Self Care) Discharge Disposition comment: Stable Prescriptions/Referrals Prescriptions/Med Rec: New albendazole 200 mg tablet 400 mg PO QDAY 2 Days Qty: 4 0RF No Action venlafaxine 75 mg capsule,extended release 24hr 75 mg PO DAILY Patient Comments: TAKE ONE CAPSULE BY MOUTH EVERY DAY naloxone [Narcan] 4 mg/actuation spray,non-aerosol 4 mg intranasal Q3M PRN (Reason: opioid overdose) Qty: 2 0RF Rx Instructions: spray 1 dose into ONE nostril; alternate nostrils w each dose until help arrives amlodipine 10 mg tablet 10 mg PO QDAY Qty: 30 0RF Problem List Clinical Impression: Infection Patient/Caregiver Discharge Instructions Additional Instructions: Please follow-up with PCP within 24-48 hours and return immediately if symptoms worsen. Print Language: Cymraes Stand Alone Forms: Patient Portal Info Letter NENA/MC KAY STITCHER Supervising Physician NENA/KAROLINE Supervising Physician: Dr. Dejesus
== END 2025-03-15 22:23 | disposition home or self-care (01) ==
PROVIDERS: Emergency Provider Emergency Medicine
DX: L08.9 Local infection of the skin and subcutaneous tissue, unspecified (principal)
CPT/HCPCS: 99281

== ENCOUNTER 2025-03-27 09:37 | Emergency (ER) | payer MEDICARE, MEDICAID, SELFPAY ==
[2025-03-27 09:58] VITALS: BP 174/91; PULSE 73; RESP 16; TEMP 36.3; O2SAT 100; BMI 23.3
--- NOTE | 2025-03-27 10:09 | PD.EDSKIN ---
ED Skin Abcess FB-RME/HPI General Chief complaint: Skin/Abscess/Foreign Body Stated complaint: GENERALIZED BREAKOUTS, CONDITION WORSE Time Seen by Provider: 03/27/25 09:57 Source: patient Arrival date/time: 03/27/25 09:37 69-year-old female with a history of methamphetamine abuse presents to the emergency room with a chief complaint of generalized skin breakouts and itchiness x 1 month Mode of arrival: ambulatory Limitations: no limitations Related Data Home Medications ?Medication ?Instructions ?Recorded ?Confirmed venlafaxine 75 mg capsule,extended 75 mg PO DAILY 11/09/24 11/09/24 release 24 hr Previous Rx's ?Medication ?Instructions ?Recorded amlodipine 10 mg tablet 10 mg PO QDAY #30 tabs 11/09/24 naloxone 4 mg/actuation nasal 4 mg intranasal Q3M PRN opioid 11/09/24 spray (Narcan) overdose #2 ea albendazole 200 mg tablet 400 mg (2 x 200 mg) PO QDAY 2 days 03/27/25 #4 tabs clotrimazole 1 % topical cream 1 applic topical BID 4 weeks #30 03/27/25 grams Allergies Allergy/AdvReac Type Severity Reaction Status Date / Time Iodinated Contrast Media Allergy Severe Agitated Verified 03/27/25 09:41 (Iodinated Contrast- Oral and IV Dye) ketorolac Allergy Severe ITCHING Verified 03/27/25 09:41 codeine AdvReac Severe VOMITING Verified 03/27/25 09:41 hydrocodone AdvReac Severe VOMITING Verified 03/27/25 09:41 tramadol AdvReac Severe SEIZURES Verified 03/27/25 09:41 PER PT Review of Systems Review of Systems Systems Reviewed: All systems reviewed, normal except as documented Constitutional Constitutional: Reports system reviewed and no additional complaints, except as documented, Denies fatigue, Denies fever(s), Denies headache(s) and Denies weakness Eyes Eyes: Reports system reviewed and no additional complaints, except as documented, Denies blurry vision and Denies change in vision ENT Ears, Nose, Mouth, and Throat: Reports system reviewed and no additional complaints, except as documented, Denies otalgia, Denies headache(s), Denies nasal congestion, Denies throat swelling and Denies vertigo Cardiovascular Cardiovascular: Reports system reviewed and no additional complaints, except as documented, Denies chest pain, Denies dyspnea and Denies dyspnea on exertion Respiratory Respiratory: Reports system reviewed and no additional complaints, except as documented, Denies chest congestion, Denies cough, Denies dyspnea, Denies dyspnea on exertion and Denies wheezing Gastrointestinal Gastrointestinal: Reports system reviewed and no additional complaints, except as documented, Denies abdominal pain, Denies cramping, Denies nausea and Denies vomiting Genitourinary Genitourinary: Reports system reviewed and no additional complaints, except as documented Musculoskeletal Musculoskeletal: Reports system reviewed and no additional complaints, except as documented and Denies back pain Integumentary/Breasts Skin/Breast: Reports system reviewed and no additional complaints, except as documented, Reports pruritus, Reports rash, Reports skin pain and Denies wounds Neurologic Neurologic: Reports system reviewed and no additional complaints, except as documented, Denies confusion, Denies headache(s), Denies lack of coordination, Denies vertigo and Denies weakness Psychiatric Psychiatric: Reports system reviewed and no additional complaints, except as documented, Denies anxiety, Denies confusion, Denies depression, Denies paranoia, Denies suicidal ideation and Denies tactile hallucinations Endocrine Endocrine: Reports system reviewed and no additional complaints, except as documented and Denies fatigue Hematologic/Lymphatic Hematologic/Lymphatic: Reports system reviewed and no additional complaints, except as documented and Denies lymphadenopathy Allergic/Immunologic Allergic/Immunologic: Reports system reviewed and no additional complaints, except as documented, Denies throat swelling, Denies urticaria and Denies wheezing Past Medical History Past Medical History NEUROLOGIC: Negative Neurological Disorders, Cerebrovascular Accident, Transient Ischemic Attacks (TIA), Dementia, Alzheimer's Disease, Parkinson's Disease, Brain Tumor, Meningitis, Seizures, Epilepsy, Multiple Sclerosis, Cerebral Palsy, Amyotrophic Lateral Sclerosis (ALS/Coleen Gehrig's), Guillain-Wilton Syndrome, Spina Bifida, Paralysis, Peripheral Neuropathy, Sykes's Palsy, Subdural Hematoma, Migraine, Head Trauma, Spinal Cord Injury or Traumatic Brain Injury CARDIAC: Positive Hypertension; Negative Cardiac Disorders, Myocardial Infarction, Cardiac Arrhythmia, Atrial Fibrillation, Angina, Heart Murmur, Coronary Artery Disease, Atherosclerotic Heart Disease, Peripheral Vascular Disease, Hypercholesterolemia, Aneurysm, Congestive Heart Failure, Congenital Heart Disease, Valvular Heart Disease, Rheumatic Fever, Cardiomyopathy, Edema, Pericarditis, Cellulitis, Deep Vein Thrombosis, Hypotension or Varicose Veins RESPIRATORY: Negative Chronic Obstructive Pulmonary Disease (COPD), Asthma, Bronchitis, Emphysema, Pneumonia, Pulmonary Fibrosis, Cystic Fibrosis, Tuberculosis, Pulmonary Embolism, Pulmonary Edema or Sleep Apnea GASTROINTESTINAL: Positive Hepatitis; Negative Gastrointestinal Disorders, Cirrhosis, Pancreatitis, Celiac Disease, Gall Bladder Disease, Gastrointestinal Bleed, Esophageal Varices, Almazan's Esophagus, Colitis, Ulcerative Colitis, Diverticulitis, Diverticulosis, Ulcer, Colorectal Cancer, Irritable Bowel, Crohn's Disease, Obstructive Bowel, Hiatal Hernia, Hemorrhoids, Gastroesophageal Reflux Disease or Obesity GENITOURINARY: Positive Genitourinary Disorders and Renal Disease; Negative Kidney Stones, Polycystic Kidney Disease, Neurogenic Bladder, Inguinal Hernia or Dialysis REPRODUCTIVE: Negative Breast Cancer, Endometriosis, Genital Herpes, Gonorrhea, Pelvic Inflammatory Disease, Previous Pregnancies, Syphilis or Uterine Prolapse MUSCULOSKELETAL: Negative Musculoskeletal Disorders, Muscular Dystrophy, Myasthenia Gravis, Marfan's Syndrome, Bone Cancer, Arthritis, Rheumatoid Arthritis, Osteoporosis, Degenerative Disk Disease, Gout, Scoliosis, Carpal Tunnel Syndrome, Fibromyalgia, Fractures, Degenerative Joint Disease, Osteomyelitis or Poliovirus ENT: Negative Cataracts, Glaucoma, Blind, Retinal Detachment, Macular Degeneration, Ear Infection, Deafness, Head Trauma or Eye Prosthesis ENDOCRINE: Negative Endocrine Disorders, Diabetes Mellitus Type 1, Diabetes Mellitus Type 2, Hypoglycemia, Clinton's Syndrome, Saul's Disease, Hyperthyroidism, Hypothyroidism, Parathyroid Disease, Pituitary Disease, Systemic Lupus Erythematosus, Syndrome of Inappropriate Antidiuretic Hormone (SIADH), Adrenal Disease or Graves' Disease HEMATOLOGIC: Negative Blood Disorders, Anemia, Leukemia, Hemophilia, Thalassemia, Sickle Cell Disease or Clotting Problems PSYCHO/SOCIAL: Positive Depression and Anxiety; Negative Psychiatric Problems, Schizophrenia, Recreational Drug Use, Bipolar Disorder, Behavior Problems, Self-Mutilation, Attention Deficit Disorder, Attention Deficit Hyperactivity Disorder, Depression, Post Traumatic Stress Disorder or Eating Disorder OTHER HISTORY: Negative Hospitalization, Autoimmune Disease, Down Syndrome, Autism, Developmental Delay, Shingles, Falls, Blood Transfusions, Blood Transfusion Reaction, Anesthesia Reactions, Organ Transplant, Chemotherapy, Radiation Therapy, Hyperbaric Therapy, MRSA, VRSA, Vancomycin-Resistant Enterococci, Human Immunodeficiency Virus (HIV), Chicken Pox, Measles, Mumps, Rubella ([place]izen [place] Measles), Pertussis, Clostridium Difficile, Cancer, Breast Cancer, Cervical Cancer, Colorectal Cancer, Lung Cancer or Ovarian Cancer Family History FAMILY HISTORY: Negative Family Psychiatric Problems, Family Respiratory Disorders, Family Cardiac Disorders, Family Gastrointestinal Problems, Family Cancer, Family Surgery or Family Anesthesia Reaction Surgical History SURGICAL: Negative Cardiac Surgery, Open Heart Surgery, Coronary Artery Bypass Graft, Valve Replacement, Vascular Surgery, Coronary Stent, Cardiac Catheterization, Pacemaker, Angiogram, Auto Implanted Cardiovert Defib, Carotid Endarterectomy, Endocrine Surgery, Thyroidectomy, Ear Surgery, Tympanostomy Tube, Eye Surgery, Nose Surgery, Oral Surgery, Tonsillectomy, Adenoidectomy, Cochlear Implant, Corneal Transplant, Throat Surgery, Abdominal Surgery, Tracheostomy, Gastric Bypass Surgery, Gastrostomy, Bowel Surgery, Nephrectomy, Joint Replacement, Amputation, Open Reduction Internal Fixation, Arthroscopy, Neurologic Surgery, Brain Shunt, Lumpectomy, Hysterectomy, Tubal Ligation, Section or Organ Transplant Social History SMOKING STATUS: Current every day smoker ED Exam General Limitations: Present no limitations General appearance: Present alert and in no apparent distress Head Head exam: Present atraumatic Eye Eye exam: Present normal appearance, PERRL and EOMI ENT ENT exam: Present normal exam, normal oropharynx and mucous membranes moist Neck Neck exam: Present normal inspection, full ROM and trachea midline Chest Chest inspection: Present normal inspection and symmetric chest wall rise Respiratory Respiratory exam: Present normal lung sounds bilaterally Cardiovascular Cardiovascular exam: Present regular rate, normal rhythm and normal heart sounds Abdominal Exam Abdominal exam: Present soft and normal bowel sounds Extremities Exam Extremities exam: Present normal inspection and full ROM Back Exam Back exam: Present normal inspection and full ROM Neurological Exam Neurological exam: Present alert, oriented X3 and CN II-XII intact Psychiatric Psychiatric exam: Present normal affect and normal mood Skin Skin exam: Present warm, dry, intact and normal color Course Quality Measures none Vital Signs Vital signs: Vital Signs Temperature 97.3 F 03/27/25 09:58 Pulse Rate 73 03/27/25 09:58 Respiratory Rate 16 03/27/25 09:58 Blood Pressure 174/91 H 03/27/25 09:58 Pulse Oximetry (%) 100 03/27/25 09:58 Oxygen Delivery Method Room Air 03/27/25 09:58 Skin / Abscess / Foreign Body MDM Narrative MDM Narrative:: 69-year-old female with a history of methamphetamine abuse presents to the emergency room with a chief complaint of generalized skin breakouts and itchiness x 1 month Patient is hemodynamically stable and in no apparent distress Physical examination shows multiple areas on her skin which the patient has been scratching. There are small sores. The patient states that she has a parasitic infection and was seen here a couple of weeks ago and prescribed medication that she was unable to get and finish. Patient states she would like to have this medication prescribed once again as well as some medication to help with her sores Patient was discharged and educated to follow-up with primary care provider in the next 24 to 48 hours and return to the emergency room for any evidence of worsening signs or symptoms Patient data External records reviewed:: [facility] previous records Clinical information provided by:: patient Social determinants that could affect healthcare access:: none Patient has the following chronic illnesses:: No chronic illness How is presenting disease/condition affected by chronic disease/condition?: no chronic disease Evaluation data The following diagnostics were reviewed and interpreted by me:: lab results and radiology exam(s) Lab and/or radiology exams considered but not ordered:: Labs and radiology exams considered and ordered Interpretation Summary: N/A Medications / Prescriptions Medications or Prescriptions considered but not ordered:: No medication given Medication administrations:: Rx given Consultations Consultation(s) initiated? (list below): No Diagnosis Skin/Abscess Differential Diagnosis: abscess of skin or subcutaneous tissue, cellulitis, insect bites and contact dermatitis Most likely diagnosis given after review of the tests above:: Infection Admission Indicated Admission indicated?: not indicated Admission Request Was there a request for admission?: No Disposition Plan Disposition Plan: Discharge Discharge Attestation Discharge Attestation: The patient and all family members were given an opportunity to ask questions and understood the discharge instructions. Discharge instructions specifically effects, indications for sooner follow up or return to the emergency department, and the expected course of current diagnosis. Patient condition: Stable Discharge Plan Plan Patient Disposition: HOME (Self Care) Discharge Disposition comment: Stable Prescriptions/Referrals Prescriptions/Med Rec: New albendazole 200 mg tablet 400 mg PO QDAY 2 Days Qty: 4 0RF clotrimazole 1 % cream 1 applic topical BID 28 Days Qty: 30 0RF No Action venlafaxine 75 mg capsule,extended release 24hr 75 mg PO DAILY Patient Comments: TAKE ONE CAPSULE BY MOUTH EVERY DAY naloxone [Narcan] 4 mg/actuation spray,non-aerosol 4 mg intranasal Q3M PRN (Reason: opioid overdose) Qty: 2 0RF Rx Instructions: spray 1 dose into ONE nostril; alternate nostrils w each dose until help arrives amlodipine 10 mg tablet 10 mg PO QDAY Qty: 30 0RF Problem List Clinical Impression: Infection Patient/Caregiver Discharge Instructions Additional Instructions: Please follow-up with your primary care provider in the next 24 to 48 hours Medication was sent to your pharmacy please pick it up and take it as indicated For any evidence of worsening signs or symptoms return to the emergency room immediately Print Language: Micronesian Stand Alone Forms: Harini Award Info., Patient Portal Info Letter PA/HEALTHCARE TECHNICIAN Supervising Physician PA/HEALTHCARE TECHNICIAN Supervising Physician: Dr. Lucia
[2025-03-27 10:15] VITALS: BP 157/80; PULSE 73; RESP 18; TEMP 36.5; O2SAT 100
== END 2025-03-27 10:20 | disposition home or self-care (01) ==
LOC: SERX 10:15
PROVIDERS: Emergency Provider Nurse Practitioner Family; PCP Obstetrics & Gynecology
DX: L08.9 Local infection of the skin and subcutaneous tissue, unspecified (principal)
CPT/HCPCS: 99281